=== PATIENT | female | born 1980 | race Caucasian/White ===

== ENCOUNTER 2017-12-09 15:42 | Inpatient (IN) ==
[~2017-12-09 15:42] MED LIST: Ketorolac Inj 30 MG/ML (IVP) Vial IV.PUSH ONE; Phenylephrine/NS 1000 MCG/10ML Syringe IV.PUSH ONE
[2017-12-09] MEDS ORDERED: Morphine Sulfate PF Inj 5 MG/10 ML Ampul ONE (16:11)
[2017-12-09] MEDS ORDERED: Citric Acid/Sodium Citrate Liq 30 ML UDC PO SCH (16:30)
[2017-12-09] MEDS ORDERED: Clindamycin 600 mg/NS Premix 600 MG/50 ML PIGGYBACK IV.SIG SCH (16:30)
[2017-12-09 16:46] LABS: Baso # (Auto) 0.1 th/mm3 (0.0-0.2); Baso % (Auto) 0.7 % (0.0-2.0); Eos # (Auto) 0.1 th/mm3 (0.0-0.4); Eos % (Auto) 0.9 % (0.0-4.0); Hematocrit 36.4 % (35.0-46.0); Hemoglobin 12.2 gm/dL (11.6-15.3); Lymph # (Auto) 2.3 th/mm3 (1.0-4.8); Lymph % (Auto) 25.9 % (9.0-44.0); Mean Corpuscular HGB Conc 33.4 % (32.0-36.0); Mean Corpuscular Hemoglobin 30.3 pg (27.0-34.0); Mean Corpuscular Volume 90.7 fL (80.0-100.0); Mono # (Auto) 0.8 th/mm3 (0.0-0.9); Mono % (Auto) 8.6 % (0.0-8.0); Neut # (Auto) 5.5 th/mm3 (1.8-7.7); Neut % (Auto) 63.9 % (16.0-70.0); Platelet Count 243 th/mm3 (150-450); Red Blood Count 4.02 mil/mm3 (4.00-5.30); Red Cell Distribution Width 13.6 % (11.6-17.2); White Blood Count 8.7 th/mm3 (4.0-11.0)
[2017-12-09 17:00] LABS: Bilirubin,Urine Negative (Negative); Clarity,Urine Cloudy (Clear); Glucose,Urine (UA) Negative (Negative); Leukocyte Esterase,Urine Small (Negative); Mucus,Urine Few /lpf (Occasional); Nitrite,Urine Negative (Negative); Specific Gravity,Urine 1.014 (1.002-1.035); Squamous Epithelial Cell,Urine 44 /hpf (0-5)
[2017-12-09 17:06] LABS: Color,Urine Yellow (Yellw/Straw)
[2017-12-09 17:10] LABS: Alanine Aminotransferase 20 U/L (10-53); Albumin 2.7 g/dL (3.4-5.0); Anion Gap 13 meq/L (5-15); Aspartate Aminotransferase 22 U/L (15-37); Blood Urea Nitrogen 6 mg/dL (7-18); Calcium 8.9 mg/dL (8.5-10.1); Carbon Dioxide 18.4 meq/L (21.0-32.0); Chloride 110 meq/L (98-107); Glomerular Filtration Rate 89 mL/min (>89); Glucose,Random 84 mg/dL (74-106); Potassium 4.1 meq/L (3.5-5.1); Sodium 141 meq/L (136-145)
[2017-12-09 17:12] LABS: Alkaline Phosphatase 125 U/L (45-117); Total Protein 7.2 g/dL (6.4-8.2)
[2017-12-09 17:15] LABS: Amphetamine Screen,Urine Neg (Neg); Barbiturate Screen,Urine Neg (Neg); Cannabinoid Screen,Urine Neg (Neg); Cocaine Screen,Urine Neg (Neg)
[2017-12-09 17:16] LABS: Opiate Screen,Urine Neg (Neg)
[2017-12-09] MEDS ORDERED: Zolpidem Tartrate 5 MG Tablet PO PRN (17:23)
[2017-12-09] MEDS ORDERED: Oxytocin 30 Units/500ml Premix 30 UNITS/500 ML BAG IV.SIG ONE (17:23)
[2017-12-09] MEDS ORDERED: Simethicone 80 MG Chew Tablet PO PRN (17:23)
[2017-12-09] MEDS ORDERED: Naloxone Inj 0.4 MG/ML Vial IV.PUSH PRN (17:25)
--- NOTE | 2017-12-09 18:14 | P.OBDELI ---
Procedure Note Performed by: Aga Claire MD Procedure: Repeat Low Transverse Section Indication for Delivery: Maternal medical problems Informed Consent Obtained: For anesthesia, For procedure Confirmed Correct: Patient, Procedure, Site, Time-out taken Anesthesia: Spinal Medication Prior to Procedure: As documented in eMAR Monitoring During Procedure: Blood pressure monitoring, doppler, Pulse oximetry Urinary Catheter: Inserted using sterile technique, To dependent drainage Sterile Preparation: Duraprep, In usual fashion, With 2% chlorexidine (Hibiclens ) Position: Supine with wedge to right side - Operative Features Skin Incision: Pfannenstiel Uterine Incision: Low transverse w/knife / scissors Membranes Ruptured: Artificially Presentation: Occiput anterior Status of Infant: Viable, Cord blood, Umbilical cord, Nursery present Placenta Delivered: Intact, Other (to mimedex) Medications: Antibiotics, Oxytocin Estimated blood loss (mL): 500 (Bps 150s/90s) Maternal Condition: Stable Baby Condition: Stable - Infant: Female (9 9 apgars)
[2017-12-09] MEDS ORDERED: Oxytocin 30 Units/500ml Premix 30 UNITS/500 ML BAG ONE (18:22)
--- NOTE | 2017-12-09 18:37 | MP ---
cc: Aga Claire MD, Pamela P MD DATE OF OPERATION: 12/09/2017 PREOPERATIVE DIAGNOSES: 1. 36 and 6/7 week intrauterine with superimposed preeclampsia on top of his essential hypertension, class A. 2. Gestational diabetes. Increased body mass index. 3. Prior section x1. POSTOPERATIVE DIAGNOSES: 1. 36 and 6/7 week intrauterine with superimposed preeclampsia on top of his essential hypertension, class A. 2. Gestational diabetes. Increased body mass index. 3. Prior section x1. 4. Delivered. PROCEDURE PERFORMED: Repeat low transverse segment section. ANESTHESIA: Spinal with Duramorph. SURGEON: Aga Claire MD BIOLOGY MANAGER: OR Staff. FINDINGS: A living female with Apgars of 9 at 1 and 9 at 5 was delivered from [place] with clear fluid and no nuchal cord. Her Apgars were 9 at 1 and 9 at 5. She weighed 6 pounds 5 ounces. The placenta was anterior and removed intact with a 3-vessel cord and sent to the [facility] for donation. ESTIMATED BLOOD LOSS: 500 mL COUNTS: Sponge, instrument, needle counts correct. Her blood pressures are 150s/80s during the procedure. She tolerated it well. Mom and baby are in recovery room stable. DESCRIPTION OF PROCEDURE: The patient was documented as [place]. The indication for section was reviewed first in the office and then prior to going to the back. She was wheeled to the back and spinal with Duramorph was administered. She was placed in dorsal supine position with a weight off the vena cava. She had sequential stockings on. A Whitlock catheter in place and received 600 mg of clindamycin IV. A timeout was performed with all in attendance. She was prepped and draped in the usual sterile fashion. Three minutes left to allow the prep to dry prior to placing the drapes. Then, after assuring adequate analgesia, a Pfannenstiel incision was made with a knife and carried down through to the fascia with the Bovie on cutting. The fascia was incised and taken off the rectus muscle superiorly and inferiorly. The rectus muscle was in the midline sharply and the parietal peritoneum was entered. A bladder flap was created off the lower uterine segment and the was delivered with the findings as noted above. The cord was clamped x2, cut, and she was handed to the neonatology team in attendance. She did have a true knot in the cord. The placenta was delivered manually intact with a 3-vessel cord. The uterus was exteriorized, cleaned with a lap sponge and closed with chromic in a running interlocking fashion with a second horizontal imbricating stitch. It was replaced in the abdominal cavity and checked for hemostasis. Irrigation was performed and clot removed. The rectus muscle was approximated loosely and then the fascia was closed with #1 Vicryl. The subcutaneous layer was closed with 3-0 plain and the skin was closed with 4-0 Vicryl on a Dani needle. Estimated blood loss was 500 mL. Sponge, instrument and needle counts were correct. Aga Claire MD PPC/SA , 06:18 PM , 06:35 PM
[2017-12-09] MEDS ORDERED: Oxytocin 30 Units/500ml Premix 30 UNITS/500 ML BAG IV.SIG PRN (22:24)
[2017-12-09] MEDS: Labetalol 200 MG Tablet PO SCH (22:49)
[2017-12-10 08:18] LABS: Albumin 1.9 g/dL (3.4-5.0); Total Protein 5.4 g/dL (6.4-8.2)
--- NOTE | 2017-12-10 08:43 | P.PNOB ---
Subjective Post op day: 1 Interval history: POD#1 ; doing well, BP normal range Objective Vital Signs/I&O: Vital Signs 12/09/17 16:16 12/09/17 16:45 12/09/17 16:50 Temperature 99.0 F Pulse Rate 94 H 89 86 Respiratory Rate 18 Blood Pressure 155/98 H 149/94 H 12/09/17 16:55 12/09/17 18:21 12/09/17 18:30 Temperature 97.8 F Pulse Rate 86 81 Respiratory Rate 15 Blood Pressure 136/82 133/78 12/09/17 18:38 12/09/17 18:47 12/09/17 18:52 Temperature Pulse Rate 79 77 Respiratory Rate 20 19 Blood Pressure 131/73 12/09/17 19:03 12/09/17 19:18 12/09/17 19:32 Temperature Pulse Rate 88 81 Respiratory Rate 20 18 Blood Pressure 150/90 H 140/85 142/95 H 12/09/17 19:46 12/09/17 19:50 12/09/17 20:02 Temperature 98.4 F Pulse Rate 20 L 84 Respiratory Rate 20 20 Blood Pressure 152/96 H 147/97 H 12/09/17 20:50 12/10/17 00:15 12/10/17 05:30 Temperature 98.2 F 98.2 F 99.0 F Pulse Rate 83 91 H 79 Respiratory Rate 18 18 20 Blood Pressure 153/97 H 141/91 H 128/70 12/10/17 08:15 Temperature 98.1 F Pulse Rate 74 Respiratory Rate 18 Blood Pressure 117/73 Intake & Output 12/09/17 12/10/17 12/10/17 18:59 06:59 18:59 Weight 114 kg Other: Weight On Admission 114 kg Result Diagrams: 12/09/17 16:00 12/09/17 16:00 Objective Remarks: GENERAL: Well-nourished, well-developed patient. CARDIOVASCULAR: Regular rate and rhythm without murmurs, gallops, or rubs. RESPIRATORY: Breath sounds equal bilaterally. No accessory muscle use. ABDOMEN/GI: Abdomen soft, non-tender, bowel sounds present. Incision: Clean, dry and intact. Fundus: Firm, non-tender at umbilicus. GENITOURINARY: Light to moderate bleeding. EXTREMITIES: No cyanosis or edema, non-tender, without signs of DVT. Medications and IVs: Active Medications Citric Acid/Sodium Citrate (Sodium Citrate/Citric Acid Liq) 30 ml PO METAL MOULDER'S ASSISTANT [facility] Stop: 12/13/17 16:29 Diphenhydramine HCl (Benadryl) 50 mg PO Q6H PRN PRN Reason: MILD TO MODERATE ITCHING Stop: 12/10/17 17:24 Diphenhydramine HCl (Benadryl Inj) 25 mg IV.PUSH Q6H PRN PRN Reason: MILD TO MODERATE ITCHING Stop: 12/10/17 17:24 Last Admin: 12/09/17 22:49 Dose: 25 mg Diphtheria/Pertussis/Tetanus Vacc (Boostrix Vaccine Inj) 0.5 ml IM .ONCE ONE Stop: 12/10/17 16:01 Clindamycin/Sodium Chloride (Cleocin 600 Mg/Ns Premix) 600 mg in 50 mls @ 100 mls/hr IV.SIG METAL MOULDER'S ASSISTANT [facility] Stop: 12/13/17 16:29 Lactated Ringer's (Lr 1000 Ml Inj) 1,000 mls @ 150 mls/hr IV.CONT .Q6H40M [facility] Last Admin: 12/09/17 16:25 Dose: 150 mls/hr Lactated Ringer's (Lr 1000 Ml Inj) 1,000 mls @ 100 mls/hr IV.CONT .Q10H [facility] Stop: 12/10/17 18:23 Oxytocin (Pitocin 30 Units/Ns 500 Ml Premix) 30 units in 500 mls @ 100 mls/hr IV.SIG PRN PRN PRN Reason: Heavy bleeding Stop: 12/10/17 22:23 Last Admin: 12/09/17 21:05 Dose: 100 mls/hr Labetalol HCl (Trandate) 200 mg PO BID [facility] Last Admin: 12/09/17 22:49 Dose: 200 mg Measles/Mumps/Rubella Vaccine Live (M-M-R Ii Vaccine Inj) 0.5 ml SQ .ONCE ONE Stop: 12/10/17 16:01 Miscellaneous Information (Misc Nursing Information) 1 each OTHER UNSCH PRN PRN Reason: SEE LABEL COMMENTS Stop: 12/10/17 17:24 Miscellaneous Information (Misc Nursing Information) 1 each OTHER UNSCH PRN PRN Reason: SEE LABEL COMMENTS Stop: 12/10/17 17:24 Naloxone HCl (Narcan Inj) 0.4 mg IV.PUSH UNSCH PRN PRN Reason: SEE LABEL COMMENTS Stop: 12/10/17 17:24 Ondansetron HCl (Zofran Odt) 4 mg SL Q6H PRN PRN Reason: NAUSEA OR VOMITING Oxycodone/Acetaminophen (Percocet 5/325 Mg) 1 tab PO Q4H PRN PRN Reason: PAIN SCALE 3 TO 5 Oxycodone/Acetaminophen (Percocet 5/325 Mg) 2 tab PO Q4H PRN PRN Reason: PAIN SCALE 6 TO 10 Senna/Docusate Sodium (Lis-Colace) 2 tab PO Q12H PRN PRN Reason: CONSTIPATION Simethicone (Mylicon Chew) 80 mg PO QID PRN PRN Reason: FLATULENCE Sodium Chloride (Ns Flush) 2 ml IV.FLUSH BID JESUS Sodium Chloride (Ns Flush) 2 ml IV.FLUSH PRN PRN PRN Reason: FLUSH AFTER USING IV ACCESS Zolpidem Tartrate (Ambien) 5 mg PO HS PRN PRN Reason: INSOMNIA Assessment and Plan - Diagnosis (1) PIH ( induced hypertension) Code(s): O13.9 - Gestational [-induced] hypertension without significant proteinuria, unspecified trimester Status: Acute Plan: BP improved,stable (2) Status post repeat low transverse section Code(s): Z98.891 - History of uterine scar from previous surgery Status: Acute Plan: Pain well controlled (3) Obesity in Code(s): O99.210 - Obesity complicating , unspecified trimester Status: Acute - Plan POD#1; doing well, monitor BP, anticipate discharge POD#3
[2017-12-10] MEDS: Senna/Docusate Sodium 8.6/50 MG Tablet PO PRN (11:48)
[2017-12-10] MEDS: Labetalol 200 MG Tablet PO SCH ×2 (11:48→21:40)
[2017-12-10] MEDS: Ibuprofen 600 MG Tablet PO PRN ×2 (11:48→18:31)
[2017-12-10] MEDS ORDERED: Measles/Mumps/Rubella Vaccine Inj 0.5 ML Vial SQ ONE (16:00)
[2017-12-10] MEDS ORDERED: Diphtheria/Tetanus/Pertussis Vaccine Inj 0.5 ML Syringe IM ONE (16:00)
[2017-12-11] MEDS: Ibuprofen 600 MG Tablet PO PRN ×4 (00:42→21:03)
[2017-12-11] MEDS: Senna/Docusate Sodium 8.6/50 MG Tablet PO PRN ×2 (08:08→22:48)
[2017-12-11] MEDS: Labetalol 200 MG Tablet PO SCH ×2 (09:17→21:03)
--- NOTE | 2017-12-11 12:57 | P.PNOB ---
Subjective Post op day: 2 Interval history: POD#2 ; doing well, no c/o H/A,BV,N/V.BF well BPR 150/97-133/88 Objective Vital Signs/I&O: Vital Signs 12/10/17 20:43 12/11/17 07:50 12/11/17 11:43 Temperature 98.0 F 98.7 F Pulse Rate 82 73 89 Respiratory Rate 17 18 Blood Pressure 125/80 150/97 H 133/88 Result Diagrams: 12/09/17 16:00 12/09/17 16:00 Objective Remarks: GENERAL: Well-nourished, well-developed patient. CARDIOVASCULAR: Regular rate and rhythm without murmurs, gallops, or rubs. RESPIRATORY: Breath sounds equal bilaterally. No accessory muscle use. ABDOMEN/GI: Abdomen soft, non-tender, bowel sounds present. Incision: Clean, dry and intact. Fundus: Firm, non-tender at umbilicus. GENITOURINARY: Light to moderate bleeding. EXTREMITIES: No cyanosis or edema, non-tender, without signs of DVT. Medications and IVs: Active Medications Citric Acid/Sodium Citrate (Sodium Citrate/Citric Acid Liq) 30 ml PO COLOR SEPARATION PHOTOGRAPHER [facility] Stop: 12/13/17 16:29 Clindamycin/Sodium Chloride (Cleocin 600 Mg/Ns Premix) 600 mg in 50 mls @ 100 mls/hr IV.SIG COLOR SEPARATION PHOTOGRAPHER [facility] Stop: 12/13/17 16:29 Lactated Ringer's (Lr 1000 Ml Inj) 1,000 mls @ 150 mls/hr IV.CONT .Q6H40M [facility] Last Admin: 12/09/17 16:25 Dose: 150 mls/hr Labetalol HCl (Trandate) 200 mg PO BID [facility] Last Admin: 12/11/17 09:17 Dose: 200 mg Ondansetron HCl (Zofran Odt) 4 mg SL Q6H PRN PRN Reason: NAUSEA OR VOMITING Oxycodone/Acetaminophen (Percocet 5/325 Mg) 1 tab PO Q4H PRN PRN Reason: PAIN SCALE 3 TO 5 Last Admin: 12/10/17 20:47 Dose: 1 tab Oxycodone/Acetaminophen (Percocet 5/325 Mg) 2 tab PO Q4H PRN PRN Reason: PAIN SCALE 6 TO 10 Last Admin: 12/11/17 08:07 Dose: 2 tab Senna/Docusate Sodium (Lis-Colace) 2 tab PO Q12H PRN PRN Reason: CONSTIPATION Last Admin: 12/11/17 08:08 Dose: 2 tab Simethicone (Mylicon Chew) 80 mg PO QID PRN PRN Reason: FLATULENCE Last Admin: 12/10/17 11:48 Dose: 80 mg Sodium Chloride (Ns Flush) 2 ml IV.FLUSH BID JESUS Sodium Chloride (Ns Flush) 2 ml IV.FLUSH PRN PRN PRN Reason: FLUSH AFTER USING IV ACCESS Zolpidem Tartrate (Ambien) 5 mg PO HS PRN PRN Reason: INSOMNIA Assessment and Plan - Diagnosis (1) PIH ( induced hypertension) Code(s): O13.9 - Gestational [-induced] hypertension without significant proteinuria, unspecified trimester Status: Acute Plan: BP improved,stable (2) Status post repeat low transverse section Code(s): Z98.891 - History of uterine scar from previous surgery Status: Acute Plan: Pain well controlled (3) Obesity in Code(s): O99.210 - Obesity complicating , unspecified trimester Status: Acute - Plan POD#2; doing well, stable BP, anticipate discharge POD#3
[2017-12-12] MEDS: Ibuprofen 600 MG Tablet PO PRN ×2 (02:51→09:07)
--- NOTE | 2017-12-12 08:05 | MH ---
cc: Aga Claire MD DATE OF ADMISSION: 12/09/2017 PREOPERATIVE DIAGNOSIS: A 37-week intrauterine with prior section, superimposed preeclampsia over gestational hypertension, class A2 gestational diabetes, increased body mass index. SCHEDULED PROCEDURE: Repeat section. DESCRIPTION OF CONDITION/HISTORY OF PRESENT ILLNESS: The patient is a pleasant 37-year-old white female, 2, para 0-1-0-1, with LMP 03/27/2017 and EDC 12/31/2017, today at 36 and 6/7 weeks. She has been receiving care since 8 weeks with the knowledge of essential hypertension and increased body mass index and prior section at 33 weeks for preeclampsia. That child is in excellent health. This has been essentially uneventful. She did not have any labor. She had elevated blood pressures beginning in the first trimester, was watched carefully and these began to climb at approximately 33 weeks and now at 37 weeks she is 150/100. She has 1+ protein. She denies headaches, nausea, vomiting, blurred vision. She has only minimal edema. She has no hyperreflexia. She has no right upper quadrant tenderness. is normal growth and surveillance has been continually reassuring with multiple biophysical profiles and weights. Her initial 1-hour Glucola was 194. She was started on a regimen of diabetic diet and eventually normalized with 10 units of NPH at night with fasting sugars typically in the 90s and 2-hour postprandials also below 100. She has had good movement, no leaking or bleeding. Her cervix is very unfavorable, long, closed, posterior. Estimated weight is 5 pounds. Infant is a female in vertex position with an anterior placenta that is not low-lying . Actually, 's weight is estimated at 6 pounds, 15 ounces, placing the baby in the 80th percentile. FAMILY HISTORY: Noncontributory. SOCIAL HISTORY: She does not smoke, drink or use illicit drugs. PAST MEDICAL HISTORY: Significant only for her prior sections and a history of colposcopy. ALLERGIES: SHE HAS DRUG ALLERGIES ERYTHROMYCIN AND AMOXICILLIN. She is group B strep negative. PHYSICAL EXAMINATION: VITAL SIGNS: Today her blood pressure is 150/100. Her weight is 252. She has 1+ protein. GENERAL: She has mild edema. NECK: She has no thyroid enlargement. LUNGS: Clear. HEART: Regular. ABDOMEN: Her fundus is 40. BACK: She has no CVA tenderness. PELVIC: is vertex. Her cervix is long, closed, posterior. EXTREMITIES: She has 1+ edema. It is not pitting. NEUROLOGIC: She has normal reflexes. IMPRESSION: 1. Late intrauterine with preeclampsia, not yet severe features, superimposed over hypertension. 2. Class A2 gestational diabetes. PLAN: Proceed with repeat low transverse segment section. When she reaches Labor and Delivery, it will be determined if she fits the emergency hypertensive protocol, but likely that will not be the case, given that she has been mildly hypertensive throughout the , both she and the baby are clinically stable and these labile blood pressures are easily brought down. She will be followed for possible exacerbations of her hypertension and watched for resolution of her diabetes. NICU will be notified. Aga Claire MD PPC/SB , 10:12 AM , 10:44 AM
--- NOTE | 2017-12-12 09:02 | P.PNOB ---
Subjective Post op day: 3 Interval history: doing well,pain well controlled Objective Vital Signs/I&O: Vital Signs 12/11/17 11:43 12/11/17 16:30 12/11/17 21:00 Temperature Pulse Rate 89 80 80 Respiratory Rate 17 Blood Pressure 133/88 148/85 H 142/98 H 12/12/17 03:00 12/12/17 08:00 Temperature 98.1 F Pulse Rate 70 75 Respiratory Rate 18 16 Blood Pressure 131/87 142/89 H Result Diagrams: 12/09/17 16:00 12/09/17 16:00 Objective Remarks: GENERAL: Well-nourished, well-developed patient. CARDIOVASCULAR: Regular rate and rhythm without murmurs, gallops, or rubs. RESPIRATORY: Breath sounds equal bilaterally. No accessory muscle use. ABDOMEN/GI: Abdomen soft, non-tender, bowel sounds present. Incision:dressing with min blood. Fundus: Firm, non-tender at umbilicus. GENITOURINARY: Light to moderate bleeding. EXTREMITIES: No cyanosis or edema, non-tender, without signs of DVT. Medications and IVs: Active Medications Citric Acid/Sodium Citrate (Sodium Citrate/Citric Acid Liq) 30 ml PO TIME CLERK COUNTS INCLUDE 234 BEDS AT THE [facility] Stop: 12/13/17 16:29 Clindamycin/Sodium Chloride (Cleocin 600 Mg/Ns Premix) 600 mg in 50 mls @ 100 mls/hr IV.SIG TIME CLERK COUNTS INCLUDE 234 BEDS AT THE [facility] Stop: 12/13/17 16:29 Lactated Ringer's (Lr 1000 Ml Inj) 1,000 mls @ 150 mls/hr IV.CONT .Q6H40M COUNTS INCLUDE 234 BEDS AT THE [facility] Last Admin: 12/09/17 16:25 Dose: 150 mls/hr Labetalol HCl (Trandate) 200 mg PO BID COUNTS INCLUDE 234 BEDS AT THE [facility] Last Admin: 12/11/17 21:03 Dose: 200 mg Ondansetron HCl (Zofran Odt) 4 mg SL Q6H PRN PRN Reason: NAUSEA OR VOMITING Oxycodone/Acetaminophen (Percocet 5/325 Mg) 1 tab PO Q4H PRN PRN Reason: PAIN SCALE 3 TO 5 Last Admin: 12/10/17 20:47 Dose: 1 tab Oxycodone/Acetaminophen (Percocet 5/325 Mg) 2 tab PO Q4H PRN PRN Reason: PAIN SCALE 6 TO 10 Last Admin: 12/12/17 07:21 Dose: 2 tab Senna/Docusate Sodium (Lis-Colace) 2 tab PO Q12H PRN PRN Reason: CONSTIPATION Last Admin: 12/11/17 22:48 Dose: 2 tab Simethicone (Mylicon Chew) 80 mg PO QID PRN PRN Reason: FLATULENCE Last Admin: 12/10/17 11:48 Dose: 80 mg Sodium Chloride (Ns Flush) 2 ml IV.FLUSH BID JESUS Sodium Chloride (Ns Flush) 2 ml IV.FLUSH PRN PRN PRN Reason: FLUSH AFTER USING IV ACCESS Last Admin: 12/11/17 22:50 Dose: 2 ml Zolpidem Tartrate (Ambien) 5 mg PO HS PRN PRN Reason: INSOMNIA Assessment and Plan - Diagnosis (1) PIH ( induced hypertension) Code(s): O13.9 - Gestational [-induced] hypertension without significant proteinuria, unspecified trimester Status: Acute Plan: BP improved,stable (2) Status post repeat low transverse section Code(s): Z98.891 - History of uterine scar from previous surgery Status: Acute Plan: Pain well controlled (3) Obesity in Code(s): O99.210 - Obesity complicating , unspecified trimester Status: Acute - Plan POD#3; doing well, stable BP, anticipate discharge POD#3 A2DM in - will cont accucheck at home. If elevated, will restart lantus 5 units qhs. cont labetalol for Pre-e. f/u 1 wk for bp and incision check wit Dr. Claire
[2017-12-12] MEDS: Labetalol 200 MG Tablet PO SCH (09:07)
== END 2017-12-12 12:30 | disposition home or self-care (01) ==
LOC: H2E 15:42 → H1EA 20:35
PROVIDERS: ADMIT Obstetrics & Gynecology; ATTEND Obstetrics & Gynecology